=== PATIENT | female | born 1990 | race Caucasian/White ===

== ENCOUNTER 2017-01-21 10:38 | Emergency (ER) | payer OTHER ==
[~2017-01-21] VITALS: Ht 147.3 cm; Wt 45.0 kg
[2017-01-21 10:40] VITALS: Ht 147.3 cm; Wt 45.0 kg
--- NOTE | 2017-01-21 11:55 | RADRPT ---
PROCEDURE: CT Maxillofacial without Contrast CLINICAL INDICATION: Bruising under right eye TECHNIQUE: Transaxial images were obtained through the maxillofacial region on a multi-slice scann er without the intravenous contrast administration. Sagittal and coronal re-formations were subseque ntly reconstructed. One or more of the following dose reduction techniques were used: - Automated exposure control. - Adjustment of the mA and/or kV according to patient size. - Use of iterative reconstruction technique. Radiation dose: CTDIvol = 29.51 mGy; DLP = 561.47 mGy-cm. COMPARISON: No prior studies are available for comparison. FINDINGS: Osseous structures: There is a fracture of uncertain chronicity involving the tip of the nasal bone which is not significantly displaced. The remaining osseous elements appear intact with no acute fr acture or destructive process evident. Paranasal sinuses: Appear well developed and well aerated with no opacification, air-fluid level or mucoperiosteal thickening evident. Mastoid air cells: Appear well pneumatized. Temporomandibular joints: Appear unremarkable. Orbits: The ocular globes, optic nerves, and intraorbital contents appear unremarkable. Soft tissues: There is superficial soft tissue swelling in the right infraorbital region. Metal johnson d projects to the right lip. IMPRESSION: 1. Nondisplaced fracture of uncertain chronicity involving the tip of the nasal bone. No other fra ctures identified. 2. The orbits and orbital contents appear intact and unremarkable. 3. Soft tissue swelling seen at the right infraorbital region. 4. A metal stud projects through the right lip. Physician Radha Date Time Electronically viewed and signed by Physician Radha on 01/21/2017 11:55 /
--- NOTE | 2017-01-21 12:12 | ERD ---
ER Documentation Chief Complaint Date/Time DATE: 01/21/17 TIME: 12:06 Chief Complaint BIB [employer] CUSTODY EVAL OF RT EYE PURPULISH DISCOLORATION. PT A&OX4. HPI This 26-year-old female was in the custody of the police for committing a crime. She does have some facial bruising of her right I intended laterally on her right face and so is brought in for evaluation. She denies any pain there but does have very slight tenderness. Denies any altered mental status loss of consciousness or known head injury. She states that she is otherwise healthy. ROS All systems reviewed and are negative except as per history of present illness. PMhx/Soc Medical and Surgical Hx: pt denies Medical Hx, pt denies Surgical Hx Hx Alcohol Use: No Hx Substance Use: No Hx Tobacco Use: No Smoking Status: Never smoker Physical Exam Vitals Vital Signs Date Time Temp Pulse Resp B/P Pulse Ox O2 Delivery O2 Flow Rate FiO2 01/21/17 10:40 98.6 110 18 110/68 98 Physical Exam Const: [] No distress Head: Mild bruising just lateral to right eye and just beneath right eye. Mild Tenderness to palpation of the bony structure just lateral to the eye. Eyes: Normal Conjunctiva ENT: Normal External Ears, Nose and Mouth. Neck: Full range of motion..~ No meningismus. Neur: Awake and alert and oriented 3, cranial nerves II through XII intact, finger-nose cerebellar intact, normal gait Psych: Normal Mood and Affect Procedures/MDM Patient is a para bruising to the right lateral line under eye with no apparent eye defects. Does have a small nasal bone fracture which may be old. Globe rupture and fractures around the ocular bones are ruled out. Patient does not have tenderness along her nose but only just along the margin of the lateral eye. We normal neurological exam with no current pain. I'm going to discharge her into his custody with community clinic referral and instructions to see a primary care doctor in the next few days. Departure Diagnosis: Primary Impression: Bruise of face Condition: Stable Patient Instructions: Facial Contusion, No Wakeup Referrals: COMMUNITY CLINICS YOU HAVE RECEIVED A MEDICAL SCREENING EXAM AND THE RESULTS INDICATE THAT YOU DO NOT HAVE A CONDITION THAT REQUIRES URGENT TREATMENT IN THE EMERGENCY DEPARTMENT. FURTHER EVALUATION AND TREATMENT OF YOUR CONDITION CAN WAIT UNTIL YOU ARE SEEN IN YOUR DOCTORS OFFICE WITHIN THE NEXT 1-2 DAYS. IT IS YOUR RESPONSIBILITY TO MAKE AN APPOINTMENT FOR FOLOW-UP CARE. IF YOU HAVE A PRIMARY DOCTOR --you should call your primary doctor and schedule an appointment IF YOU DO NOT HAVE A PRIMARY DOCTOR YOU CAN CALL OUR PHYSICIAN REFERRAL HOTLINE AT IF YOU CAN NOT AFFORD TO SEE A PHYSICIAN YOU CAN CHOSE FROM THE FOLLOWING [facility] [address] [facility] [address] [facility] [facility] [address] [facility] [address] [facility] [facility] [address] [facility]. [facility]. [address] Additional Instructions: Call your primary care doctor TOMORROW for an appointment during the next 2-3 days.See the doctor sooner or return here if your condition worsens before your appointment time. DAR GUNN DO Jan 21, 2017 12:12
== END 2017-01-21 12:14 ==
LOC: E/R 10:38
DX: S00.83XA Contusion of other part of head, initial encounter (principal); X58.XXXA Exposure to other specified factors, initial encounter; Y92.9 Unspecified place or not applicable
CPT/HCPCS: 70486